=== PATIENT | female | born 1960 | race Caucasian/White ===

== ENCOUNTER → 2018-01-07 | Outpatient (CLI) | payer OTHER ==
[~2018-01-07] MED LIST: CITA-155 PO; ETAN25DI2 SQ; METH2.5T43 PO; MILK140C3 PO
[2018-01-07 12:48] LABS: PLATELET COUNT, AUTOMATED 188 K/uL (150-450)
== END ==
LOC: LAB 12:27
PROVIDERS: ATTEND Physician Assistant
DX: Z11.1 Encounter for screening for respiratory tuberculosis (principal); M06.9 Rheumatoid arthritis, unspecified
CPT/HCPCS: 36415; 85025; 86480

== ENCOUNTER → 2018-04-17 | Outpatient (CLI) | payer OTHER ==
[~2018-04-17] MED LIST changes: +MILK THISTLE140 M1 PO; -MILK140C3 PO
--- NOTE | 2018-04-17 15:25 | RADIOLOGY IMAGING REPORT ---
FACILITY: [facility] PATIENT NAME: UZMA DIETZ : [id number] MR: [id number] V: [id number] EXAM DATE: [id number] ORDERING PHYSICIAN: KATHIE DUKE TECHNOLOGIST: Molly Groves PROCEDURE:BILATERAL DIGITAL SCREENING MAMMOGRAM WITH CAD ASSISTED INTERPRETATION & 3D TOMOSYNTHESIS COMPARISON:Prior mammogram 04/03/2017. INDICATIONS:SCREENING FINDINGS: Breast tissue is heterogeneously dense. There is no suspicious mass, calcification, or architectural distortion. DIAGNOSTIC CATEGORY 1--NEGATIVE. RECOMMENDATIONS: ROUTINE MAMMOGRAM AND CLINICAL EVALUATION. IMPRESSION: BIRADS 1: Negative. No mammographic evidence for malignancy. Dictated by: Jeff Oviedo M.D. on 04/17/2018 at 12:52 Transcribed by: RNEE on 04/17/2018 at 13:40 Approved by: Jeff Oviedo M.D. on 04/17/2018 at 15:22 [facility]
== END ==
LOC: MAMO 01:12
PROVIDERS: ATTEND Nurse Practitioner Psychiatric/Mental Health
DX: Z12.31 Encounter for screening mammogram for malignant neoplasm of breast (principal)
CPT/HCPCS: 77063; 77067

== ENCOUNTER 2018-05-26 17:26 | Emergency (ER) | payer OTHER ==
[2018-05-26 17:33] VITALS: BP 147/95
--- NOTE | 2018-05-26 17:35 | ER Report ---
History and Physical Time Seen By MD: 17:31 HPI/ROS CHIEF COMPLAINT: Laceration HISTORY OF PRESENT ILLNESS: This is a 57 year old female who presents to the emergency department with her for a laceration to the left brow. Possibly 30 minutes prior to arrival patient was doing some yard work, bent over and hit the left brow on the corner of a compost bin. Patient denies loss of consciousness, no headaches. No visual changes. No chest pain or shortness of breath. Patient is otherwise healthy. There is some mild swelling and a small laceration to the left lateral brow. REVIEW OF SYSTEMS: Respiratory: No cough, no dyspnea. Cardiovascular: No chest pain, no palpitations. Gastrointestinal: No vomiting, no abdominal pain. Musculoskeletal: No back pain. Integument: As above. Allergies: Coded Allergies: No Known Drug Allergies (Unverified , 05/26/18) Home Meds Reported Medications Citalopram Hydrobromide (CELEXA) 10 Mg Tablet, 20 MG PO QDAY, #10 TAB 11/09/15 Etanercept (ENBREL) 25 Mg/0.5 Ml Disp.syrin, 25 MG SQ QWEEK 11/09/15 Discontinued Reported Medications Methotrexate Sodium (METHOTREXATE) 2.5 Mg Tablet, 6 TAB PO QWEEKF 01/04/16 Milk Thistle Fruit Extract (MILK THISTLE) Unknown Strength Capsule, 140 MG PO, CAPSULE 11/09/15 Past Medical/Surgical History The patient has a past medical and surgical history of inflammatory arthritis, osteoarthritis in the hands, wrist and back, back pain, wears glasses, intermittent rashes, right knee scope, sinus surgery. Reviewed Nurses Notes: Yes Smoking Status: Never Smoker Hx Alcohol Use: Yes Constitutional Vital Sign - Last 24 Hours 05/26/18 17:33 Temp 98.6 Pulse 68 Resp 16 B/P (MAP) 147/95 Pulse Ox 95 O2 Delivery Room Air Physical Exam General Appearance: The patient is alert, has no immediate need for airway protection and no current signs of toxicity. Eyes: Pupils equal and round no injection. Respiratory: Chest is non tender, lungs are clear to auscultation. Cardiac: regular rate and rhythm. Gastrointestinal: Abdomen is soft and non tender, no masses, bowel sounds normal. Musculoskeletal: Neck: Neck is supple and non tender. Extremities have full range of motion and are non tender. Skin: 0.5 cm laceration to the left lateral brow. No crepitus or depressions of the skull. Bleeding controlled. DIFFERENTIAL DIAGNOSIS: After history and physical exam differential diagnosis was considered for laceration. Medical Decision Making ED Course/Re-evaluation ED Course The patient was admitted to room. A history and physical obtained. Differential diagnoses were considered. The patient's wound was anesthetized and repaired as noted below. Patient was instructed to follow-up with her primary care provider or return to ER within the next 5-6 days for reevaluation and suture removal. Patient states her tetanus is up-to-date. Patient was also encouraged to apply ice to the affected area for the next 24 hours, 20 minutes on 5-6 times a day. Patient exposed understanding. The patient was discharged home. Patient had no other questions or concerns at this time. Procedure: Laceration repair. Verbal consent was obtained from the patient. The 0.5 cm laceration on the left lateral brow was anesthetized in the usual fashion. The wound was scrubbed, draped and explored to its base with a gloved finger. There were no deep structures involved. No tendon injury was identified. The wound was repaired with 3, 6-0 Prolene simple interrupted sutures.. The wound repair was simple. The procedure was performed by myself. Decision to Disposition Date: May 26, 2018 Decision to Disposition Time: 18:24 Depart Departure Latest Vital Signs Vital Signs Date Time Temp Pulse Resp B/P (MAP) Pulse Ox O2 Delivery O2 Flow Rate FiO2 05/26/18 17:33 98.6 68 16 147/95 95 Room Air Impression: Primary Impression: Facial laceration Condition: Improved Disposition: HOME OR SELF-CARE Referrals: KATHIE DUKE (PCP) Patient Instructions: Facial Laceration (ED) Additional Instructions: Keep wound dry for 28-48 hours. Follow up with your primary care provider in the next 5 days to have sutures removed. Monitor for signs of infection; redness, swelling, heat, discharge, increasing pain or red streaking. Take Tylenol as needed for pain. Return to the ER with any concerns. You may change dressing as needed. Problem Qualifiers Primary Impression: Facial laceration Encounter type: initial encounter Qualified Codes: S01.81XA - Laceration without foreign body of other part of head, initial encounter NABOR GARCIA-BC May 26, 2018 17:34
== END 2018-05-26 18:37 | disposition home or self-care (01) ==
LOC: ER 17:36
DX: S01.112A Laceration without foreign body of left eyelid and periocular area, initial encounter (principal)
CPT/HCPCS: 99283